=== PATIENT | female | born 1990 | race African-American/Black ===

== ENCOUNTER 2024-08-06 16:39 | Emergency (ER) | payer OTHER, SELFPAY ==
[2024-08-06 16:43] VITALS: BP 171/95
[2024-08-06 17:20] LABS: HCG, Serum Qualitative Screen Negative
[2024-08-06 17:24] LABS: ALT (SGPT) 26 U/L (0-35); AST (SGOT) 30 U/L (14-36); Albumin 4.7 g/dl (3.5-5.0); Alkaline Phosphatase 74 U/L (38-126); Blood Urea Nitrogen 14 mg/dl (7-17); Calcium 9.4 mg/dl (8.4-10.2); Carbon Dioxide 27 mmol/L (22-30); Chloride 102 mmol/L (98-107); Glucose 108 mg/dl (70-99); Potassium 3.5 mmol/L (3.5-5.1); Sodium 139 mmol/L (135-145); Total Bilirubin 0.5 mg/dl (0.2-1.3); Total Protein 8.1 g/dl (6.3-8.2); eGFR > 60.00
[2024-08-06 17:32] LABS: % Basophils 0.3 % (0-2); % Eosinophils 0.5 % (0-6); % Immature Granulocytes 0.3 % (0-0.5); % Lymphocytes 49.1 % (20.5-51.1); % Monocytes 9.5 % (1.7-9.3); % Neutrophils 40.3 % (42.2-75.2); Absolute Monocytes 0.6 10^3/uL (0.1-0.6); Absolute Neutrophils 2.4 10^3/uL (1.4-6.5); Hematocrit 39.7 % (37.0-47.0); Hemoglobin 12.5 g/dL (12.0-16.0); Mean Corp Hgb Conc. 31.5 g/dL (33.0-37.0); Mean Corpuscular Hgb 23.1 pg (27.0-31.0); Mean Corpuscular Volume 73.4 fL (81.0-99.0); Mean Platelet Volume 10.9 fL (7.4-10.4); Nucleated Red Blood Cells % 0 %; Platelet Count 220 10^3/uL (130-400); Red Blood Cell Count 5.41 10^6/uL (4.20-5.40); Red Cell Dist. Width 14.6 % (11.5-14.5)
--- NOTE | 2024-08-06 20:43 | ED.GENMED ---
History of Present Illness
General
Chief Complaint: Problems
Source: patient
Exam Limitations: none
Time Seen by Provider: 08/06/24 19:59
History of Present Illness
History of Present Illness:
This is a 33 year old female that comes in with c/o just feeling weak today. States that she did not feel good over the weekend and she tested positive for COVID on . Staes that she did not have a fever yesterday and she was feeling better.
States that she went back to work today. States that on Tuesday she started with her period but last week she wasn't feeling good so she did a test. States that this was positive. State that day at work she just felt weak and her legs were
like jell-o. State that she had a little chest discomfort on and off, nausea and a headache.
Past History
Past History
ED Past Medical History: HTN; Negative Asthma, Hypercholesterolemia or NIDDM
ED Past Surgical History: (X1)
Social History
Tobacco: Non-smoker
Alcohol: Occasional
Personal: Single
Living: with family
Employment: Employed
Review of Systems
Review of Systems
All Other Systems: ROS reviewed and negative except as documented in HPI and ROS
Constitutional: Reports no symptoms; Denies fever or chills
EENT: Reports no symptoms
Respiratory: Reports no symptoms; Denies cough or trouble breathing
Cardiac: Reports chest pain
ABD/GI: Reports nausea; Denies abdominal pain, vomiting or diarrhea
: Reports no symptoms; Denies dysuria, frequency or urgency
Musculoskeletal: Reports no symptoms
Skin: Reports no symptoms
Neurological: Reports headache, weakness and other (Legs felt like jell-o); Denies dizzy
Psychiatric: Reports no symptoms
Phy Exam
General Physical Exam
General Presentation: well appearing and no apparent distress
General age: appears stated age
General Skin: warm and dry
General Habitus: normal
General Mental: alert
General Hydration: appears well hydrated
ENT Exam
ENT Exam: TM's normal, pharynx normal and neck supple
Eye Exam
Eye Exam: EOMI
Cardiovascular Exam
Cardiovascular Exam: regular rate/rhythm, no edema, no murmur and normal peripheral pulses
Pulmonary Exam
Pulmonary Exam: lungs clear, no respiratory distress, no rales, chest non tender, no crackles, no rhonchi, no wheezing and no cough
Gastrointestinal Exam
Gastrointestinal Exam: normal bowel sounds, non tender, soft, no organomegaly, no pulsatile mass and non distended
Musculoskeletal Exam
Musculoskeletal Exam: full ROM and no edema
Skin Exam
Skin Exam: normal color, warm/dry, no rash and no petechia
Psychiatric Exam
Psychiatric Exam: normal mood/affect
Course
Orders/Labs/Results
Orders:
Orders
08/06/24 16:48
Test Result ONCE
08/06/24 17:04
Complete Blood Count/With Diff Urgent
Comprehensive Metabolic Panel Urgent
HCG, Serum Qualitative Screen Urgent
08/06/24 20:36
Electrocardiogram (*1) Urgent
Reason for Study: Chest Pain
EKG- Treatment ONCE
Acetaminophen [Tylenol] 1,000 mg PO NOW STA
Ibuprofen [Motrin] 600 mg PO NOW STA
08/06/24 21:00
Troponin I Urgent
Abnormal Lab Results
08/06/24
17:04
RBC 5.41 H 10^6/uL
(4.20-5.40)
MCV 73.4 L fL
(81.0-99.0)
MCH 23.1 L pg
(27.0-31.0)
MCHC 31.5 L g/dL
(33.0-37.0)
RDW 14.6 H %
(11.5-14.5)
MPV 10.9 H fL
(7.4-10.4)
Neutrophils % 40.3 L %
(42.2-75.2)
Monocytes % 9.5 H %
(1.7-9.3)
Glucose 108 H mg/dl
(70-99)
08/06/24 17:04
08/06/24 17:04
Anemia, Glucose nonfasting. HCG negative. Troponin <0.012
Vital Signs
Initial and Last Documented VS:
Initial Vital Signs
Temp Pulse Resp BP Pulse Ox
97.8 F 97 18 171/95 100
08/06/24 16:43 08/06/24 16:43 08/06/24 16:43 08/06/24 16:43 08/06/24 16:43
Last Documented Vital Signs
Temp Pulse Resp BP Pulse Ox
97.8 F 70 18 142/90 100
08/06/24 16:43 08/06/24 21:01 08/06/24 16:43 08/06/24 21:01 08/06/24 21:01
Information
Weeks gestation: N/A
Location: N/A
MDM/Problems Addressed
Differential Diagnosis Includes:
COVID,
MDM/Problems Addressed:
This is a 33 year old female that comes in with c/o possible and just feeling weak today with her legs feeling like jell-o. States that she had COVID and was diagnosed on . States that she also did a home test and this
was positive but she started wiht her period as she was due.
Explained to patient that her blood work shows that she is a little anemic but her HCG is negative. Patient c/o some on and chest pain and a headache. WIll medicate for her headache and get ECG and Troponin
INto see patient. Explained that her troponin is normal. Her HCG is negative and that this is most likely her normal period. Patient is most likely a little weak due to COVID. Will discharge home.
Chronic conditions affecting care: HTN
Acute Exacerbation and/or Progression of Chronic Illness:
NA
*Pulse Oximetry
Patient hypoxic: no
*EKG
Interpreted by ED Provider?: Yes
Heart Rate: 72
Rate: normal
Rhythm: sinus
[place]: normal axis
Interval: normal interval
QRS Pattern: normal QRS
Ischemia: no ischemia
*Crew Person Interpretation
Rate: Crew Person- N/A
*Critical Care Note
Total Time (30-74mins, 75-104mins- exclusive of procedures): Not Applicable
ED Attending Note
-
Portions of this chart may have been created with voice recognition software.� Occasional wrong word or��sound alike� substitutions may have occurred due to the inherent limitations of voice recognition software.
Discharge Plan
Departure
Patient Disposition: Home (Routine Discharge)
Date of Disposition: 08/06/24
Time of Disposition: 22:45
Patient with high blood pressure during this ER visit?: Yes
Condition: Good
Covid-19: Not Applicable
Discharge Problem:
Recent COVID, Weakness
Instructions: Weakness - ED discharge instructions, BLOOD PRESSURE
Referrals:
UNKNOWN - PT DOES,NOT KNOW [Family Provider] -
Stand Alone Forms: Return to Work
Activity Restrictions/Additional Instructions:
As discussed, your blood work shows that you are a little anemic. Your Troponin which is specific for the heart is normal and your HCG is negative. You weakness is most likely related to the COVID. Please increase your water intake to 8-8oz glasses
daily. Follow up with the family doctor for recheck. IF YOU HAVE ANY OTHER CONCERNS PLEASE RETURN TO THE EMERGENCY ROOM
Interventions
Interventions:
*Risk Screen - Suicide Last Done: 08/06/24 16:43
*General Assessment Last Done: 08/06/24 16:43
*Neglect/Abuse Screening Last Done: 08/06/24 16:43
Discharge Date and Time
Print Language: ISRAELI
[2024-08-06] MEDS: MOTRIN 600 MG PO (20:47)
[2024-08-06] MEDS: TYLENOL 1000 MG PO (20:48)
[2024-08-06 21:01] VITALS: BP 142/90
[2024-08-06 21:33] LABS: Troponin I < 0.012 ng/ml
[2024-08-06 23:07] VITALS: BP 156/104
== END 2024-08-06 23:08 | disposition home or self-care (01) ==
LOC: EMR 16:39
PROVIDERS: Clinical Nurse Specialist Family Health; Student in an Organized Health Care Education/Training Program; EMERGENCY PHYSICIAN Emergency Medicine
DX: R53.1 Weakness (principal); U09.9 Post COVID-19 condition, unspecified; R11.0 Nausea; D64.9 Anemia, unspecified; R51.9 Headache, unspecified; R07.9 Chest pain, unspecified; I10 Essential (primary) hypertension
CPT/HCPCS: 99283; 80053; 84484; 84703; 85025; 93005